=== PATIENT | male | born 1990 | race Two or more races ===

== ENCOUNTER 2018-03-21 21:12 | Emergency (ER) | payer OTHER ==
[2018-03-21] MEDS ORDERED: ceFAZolin 1 GM Vial IM ONE (21:24)
[2018-03-21] MEDS ORDERED: Diphtheria,Pertussis(Acell),Tetanus Vaccine 0.5 ML Syringe IM ONE (21:25)
[2018-03-21 21:32] VITALS: BP 119/74
[2018-03-21] MEDS ORDERED: Water For Injection, Sterile 20 ML ONE (21:56)
[2018-03-21] MEDS ORDERED: Bupivacaine 0.5% 10 ML SDV ONE (21:57)
--- NOTE | 2018-03-21 22:36 | EDM.PDOC ---
ED HPI GENERAL MEDICAL PROBLEM - General Chief Complaint: Laceration Stated Complaint: CUT ON RIGHT MIDDLE FINGER Time Seen by Provider: 03/21/18 21:22 - History of Present Illness INITIAL COMMENTS - FREE TEXT/NARRATIVE: HISTORY AND PHYSICAL: History of present illness: Patient is 27-year-old male presents with concern daily Jutte third digit of his right hand this occurred prior to arrival he denies other trauma concern he denies up-to-date tetanus Review of systems: As per history of present illness and below otherwise all systems reviewed and negative. Past medical history: As per history of present illness and as reviewed below otherwise noncontributory. Surgical history: As per history of present illness and as reviewed below otherwise noncontributory. Social history: No reported history of drug or alcohol abuse. Family history: As per history of present illness and as reviewed below otherwise noncontributory. Physical exam: HEENT: Atraumatic, normocephalic, pupils reactive, negative for conjunctival pallor or scleral icterus, mucous membranes moist, throat clear, neck supple, nontender, trachea midline. Lungs: Clear to auscultation, breath sounds equal bilaterally, chest nontender. Heart: S1S2, regular, negative for clicks, rubs, or JVD. Abdomen: Soft, nondistended, nontender. Negative for masses or hepatosplenomegaly. Negative for costovertebral tenderness. Pelvis: Stable nontender. Genitourinary: Deferred. Rectal: Deferred. Extremities: Patient has a laceration to the dorsal aspect distally through the nail and nailbed of the right hand. CMS neurovascular is unremarkable Neuro: Awake, alert, oriented. Cranial nerves II through XII unremarkable. Cerebellum unremarkable. Motor and sensory unremarkable throughout. Exam nonfocal. Diagnostics: X-ray right hand Therapeutics: Patient was anesthetized with Marcaine 0.5% without epinephrine. His most 0.9 normal saline prepped draped sterile manner closed with 5-0 nylon interrupted suture aluminum/foam volar splint was applied Impression: #1 tuft fracture third digit #2 laceration third digit Definitive disposition and diagnosis as appropriate pending reevaluation and review of above. right middle finger Pain Score (Numeric/FACES): 5 - Related Data Allergies Allergy/AdvReac Type Severity Reaction Status Date / Time No Known Allergies Allergy Verified 03/21/18 21:30 Home Meds: Home Meds . [No Known Home Meds] 03/29/16 [History] Past Medical History - Past Health History Medical/Surgical History: Denies Medical/Surgical History HEENT History: Reports: None Cardiovascular History: Reports: None Respiratory History: Reports: None Gastrointestinal History: Reports: None Genitourinary History: Reports: None Musculoskeletal History: Reports: Fracture Other Musculoskeletal History: rt ankle fx, clavicle fx Neurological History: Reports: None Psychiatric History: Reports: None Endocrine/Metabolic History: Reports: None Hematologic History: Reports: None Immunologic History: Reports: None Oncologic (Cancer) History: Reports: None Dermatologic History: Reports: None - Infectious Disease History Infectious Disease History: Reports: None - Past Surgical History Head Surgeries/Procedures: Reports: None Musculoskeletal Surgical History: Reports: None Social & Family History - Family History Family Medical History: Noncontributory - Caffeine Use Caffeine Use: Reports: None ED ROS GENERAL - Review of Systems Review Of Systems: ROS reveals no pertinent complaints other than HPI. ED EXAM, SKIN/RASH Exam: See Below (See dictation) Course - Vital Signs Last Recorded V/S: Last Vital Signs Temp 36.4 C 03/21/18 21:30 Pulse 102 H 03/21/18 21:30 Resp 18 03/21/18 21:30 BP 119/74 03/21/18 21:30 Pulse Ox 98 03/21/18 21:30 - Orders/Labs/Meds Orders: Active Orders 24 hr Category Date Time Status Vaccines to be Administered [RC] PER UNIT ROUTINE Care 03/21/18 21:25 Active Hand 2V Rt [CR] Stat Exams 03/21/18 21:24 Taken Meds: Medications Discontinued Medications Generic Name Dose Route Start Last Admin Trade Name Annie PRN Reason Stop Dose Admin Bupivacaine HCl Confirm 03/21/18 21:57 Sensorcaine-Mpf 0.5% Administered 03/21/18 21:58 Dose 10 ml .ROUTE .STK-MED ONE Cefazolin Sodium 1 gm 03/21/18 21:24 03/21/18 22:29 Ancef IM 03/21/18 21:25 1 gm ONETIME ONE Administration Diphtheria/Tetanus/Acell Pertussis 0.5 ml 03/21/18 21:25 03/21/18 22:29 Adacel IM 03/21/18 21:26 0.5 ml .ONCE ONE Administration Sterile Water Confirm 03/21/18 21:56 Sterile Water For Injection Administered 03/21/18 21:57 Dose 20 mls @ as directed .ROUTE .STK-MED ONE Departure - Departure Time of Disposition: 22:35 Disposition: Home, Self-Care 01 Condition: Good Clinical Impression: Open fracture of tuft of distal phalanx of finger - Discharge Information Referrals: PCP,None [Primary Care Provider] - Additional Instructions: The following information is given to patients seen in the emergency department who are being discharged to home. This information is to outline your options for follow-up care. We provide all patients seen in our emergency department with a follow-up referral. The need for follow-up, as well as the timing and circumstances, are variable depending upon the specifics of your emergency department visit. If you don't have a primary care physician on staff, we will provide you with a referral. We always advise you to contact your personal physician following an emergency department visit to inform them of the circumstance of the visit and for follow-up with them and/or the need for any referrals to a consulting specialist. The emergency department will also refer you to a specialist when appropriate. This referral assures that you have the opportunity for followup care with a specialist. All of these measure are taken in an effort to provide you with optimal care, which includes your followup. Under all circumstances we always encourage you to contact your private physician who remains a resource for coordinating your care. When calling for followup care, please make the office aware that this follow-up is from your recent emergency room visit. If for any reason you are refused follow-up, please contact the [facility] emergency department at and asked to speak to the emergency department charge nurse. [facility] specialty clinic-Plastics [address] [place] [address] [id number] Follow-up hand surgery above call to schedule appointment splint as directed Keflex as prescribed splint as directed and return as needed as discussed - My Orders Last 24 Hours: My Active Orders 03/21/18 21:24 Hand 2V Rt [CR] Stat 03/21/18 21:25 Vaccines to be Administered [RC] PER UNIT ROUTINE - Assessment/Plan Last 24 Hours: My Active Orders 03/21/18 21:24 Hand 2V Rt [CR] Stat 03/21/18 21:25 Vaccines to be Administered [RC] PER UNIT ROUTINE
--- NOTE | 2018-03-22 08:33 | CR ---
EXAM DATE: 03/21/18 PATIENT'S AGE: 27 Patient: JOSAFAT PORTILLO Facility: [place], [place] Site . Site : 1990 Study: XRay Extremity Right HAND [id number]/13/2018 9:56:03 PM Ordering Physician: Mabel Lara Final Report: Indication: Injury and pain Technique: Right hand 2 views Comparison: None Findings/Impression: Bones and soft tissues: Acute nondisplaced fractures present in the distal tuft of the right 3rd finger with adjacent soft tissue injury. No other osseous or soft tissue abnormality. Joint spaces: Unremarkable. Dictated by Rob Peter MD @ Mar 21 2018 10:13PM (Electronic Signature) Report Signed by Proxy. ELLIE
== END 2018-03-21 23:01 | disposition home or self-care (01) ==
LOC: MW.ED 21:12
DX: S62.662B Nondisplaced fracture of distal phalanx of right middle finger, initial encounter for open fracture (principal); X58.XXXA Exposure to other specified factors, initial encounter; Z23 Encounter for immunization
CPT/HCPCS: 73120; 90471; 90715; 96372; 99283; J0690

== ENCOUNTER 2018-04-13 08:41 | Emergency (ER) | payer OTHER ==
[2018-04-13] MEDS ORDERED: HYDROmorphone 2 MG/ML SDV IVPUSH ONE (08:46)
--- NOTE | 2018-04-13 08:47 | EDM.PDOC ---
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 Past medical history: As per history of present illness and as reviewed below otherwise noncontributory. Surgical history: As per history of present illness and as reviewed below otherwise noncontributory. Social history: No reported history of drug or alcohol abuse. Family history: As per history of present illness and as reviewed below otherwise noncontributory. Physical exam: HEENT: Atraumatic, normocephalic, pupils reactive, negative for conjunctival pallor or scleral icterus, mucous membranes moist, throat clear, neck supple, nontender, trachea midline. Lungs: Clear to auscultation, breath sounds equal bilaterally, chest nontender. Heart: S1S2, regular, negative for clicks, rubs, or JVD. Abdomen: Soft, nondistended, nontender. Negative for masses or hepatosplenomegaly. Negative for costovertebral tenderness. Pelvis: Stable nontender. Genitourinary: Deferred. Rectal: Deferred. Extremities: Atraumatic, negative for cords or calf pain. Neurovascular unremarkable. Neuro: Awake, alert, oriented. Cranial nerves II through XII unremarkable. Cerebellum unremarkable. Motor and sensory unremarkable throughout. Exam nonfocal. Diagnostics: [2 views left foot ] Therapeutics: [Tetanus status is up-to-date Dilaudid 2 mg IV 1 g Rocephin IV Normal saline 1 25 mL per hour ] Splint provided Patient is transferred via ambulance to [facility] Edward, [facility] accepting Impression: [ open, comminuted, fractured distal metatarsal first ] Definitive disposition and diagnosis as appropriate pending reevaluation and review of above. Left Feet Pain Score (Numeric/FACES): 10 - Related Data Allergies Allergy/AdvReac Type Severity Reaction Status Date / Time No Known Allergies Allergy Verified 04/13/18 08:56 Home Meds: Home Meds . [No Known Home Meds] 03/29/16 [History] Past Medical History - Past Health History Medical/Surgical History: Denies Medical/Surgical History HEENT History: Reports: None Cardiovascular History: Reports: None Respiratory History: Reports: None Gastrointestinal History: Reports: None Genitourinary History: Reports: None Musculoskeletal History: Reports: Fracture Other Musculoskeletal History: rt ankle fx, clavicle fx Neurological History: Reports: None Psychiatric History: Reports: None Endocrine/Metabolic History: Reports: None Hematologic History: Reports: None Immunologic History: Reports: None Oncologic (Cancer) History: Reports: None Dermatologic History: Reports: None - Infectious Disease History Infectious Disease History: Reports: None - Past Surgical History Head Surgeries/Procedures: Reports: None Musculoskeletal Surgical History: Reports: None Social & Family History - Family History Family Medical History: Noncontributory - Caffeine Use Caffeine Use: Reports: None ED ROS GENERAL - Review of Systems Review Of Systems: See Below ED EXAM, GENERAL - Physical Exam Exam: See Below Course - Vital Signs Last Recorded V/S: Last Vital Signs Temp 96.3 F 04/13/18 08:42 Pulse 66 04/13/18 08:42 Resp 16 04/13/18 08:42 BP 128/65 04/13/18 08:42 Pulse Ox 98 04/13/18 08:42 - Orders/Labs/Meds Orders: Active Orders 24 hr Category Date Time Status Foot 2V Lt [CR] Stat Exams 04/13/18 08:46 Taken Sodium Chloride 0.9% [Normal Saline] 1,000 ml Med 04/13/18 09:00 Active IV STAT Medication Orders Sodium Chloride (Normal Saline) 1,000 mls @ 125 mls/hr IV STAT SARAH Last Admin: 04/13/18 09:06 Dose: 125 mls/hr Meds: Medications Generic Name Dose Route Start Last Admin Trade Name Freq PRN Reason Stop Dose Admin Sodium Chloride 1,000 mls @ 125 mls/hr 04/13/18 09:00 04/13/18 09:06 Normal Saline IV 125 mls/hr STAT SARAH Administration Discontinued Medications Generic Name Dose Route Start Last Admin Trade Name Annie PRN Reason Stop Dose Admin Hydromorphone HCl 2 mg 04/13/18 08:46 04/13/18 09:06 Dilaudid IVPUSH 04/13/18 08:47 2 mg ONETIME ONE Administration Hydromorphone HCl Confirm 04/13/18 08:50 04/13/18 09:06 Dilaudid Administered 04/13/18 08:51 Not Given Dose 2 mg .ROUTE .STK-MED ONE Ceftriaxone Sodium/Dextrose 1 50 mls @ 100 mls/hr 04/13/18 08:53 04/13/18 09: 05 gm/ Premix IV 04/13/18 09:22 100 mls/hr ONETIME ONE Administration Departure - Departure Time of Disposition: 09:30 Disposition: DC/Tfer to Other 70 Condition: Poor Clinical Impression: Fracture, metatarsal, open - Discharge Information Referrals: PCP,None [Primary Care Provider] - - My Orders Last 24 Hours: My Active Orders 04/13/18 08:46 Foot 2V Lt [CR] Stat 04/13/18 09:00 Sodium Chloride 0.9% [Normal Saline] 1,000 ml IV STAT - Assessment/Plan Last 24 Hours: My Active Orders 04/13/18 08:46 Foot 2V Lt [CR] Stat 04/13/18 09:00 Sodium Chloride 0.9% [Normal Saline] 1,000 ml IV STAT
[2018-04-13] MEDS ORDERED: HYDROmorphone 1 MG/ML Syringe ONE ×2 (08:50→10:10)
[2018-04-13] MEDS ORDERED: cefTRIAXone 1 GM in Premix Bag 1 BAG IV ONE (08:53)
[2018-04-13] MEDS ORDERED: Sodium Chloride 0.9% 1,000 ML IV SCH (09:00)
[2018-04-13 09:47] VITALS: BP 143/94
[2018-04-13] MEDS ORDERED: HYDROmorphone 2 MG/ML Syringe IVPUSH ONE (09:54)
--- NOTE | 2018-04-13 16:40 | CR ---
EXAM DATE: 04/13/18 PATIENT'S AGE: 27 Patient: JOSAFAT PORTILLO Facility: [place], [place] Site . Site : 1990 Study: XRay Extremity Left foot [id number]/6/2018 9:15:27 AM Ordering Physician: Doctor Osorio Final Report: Indication: Injury and pain Technique: Left foot 2 views Comparison: None Findings/Impression: Bones: Acute comminuted, displaced fracture is present in the distal 1st metatarsal. Nondisplaced longitudinal fracture is in the proximal phalanx of the 1st toe. No dislocation. No other osseous abnormality. Joint spaces: Unremarkable. Soft tissues: Soft tissue swelling is adjacent to the fractures. Dictated by Rob Peter MD @ Apr 13 2018 9:29AM (Electronic Signature) Report Signed by Proxy. ELLIE
== END 2018-04-13 10:30 | disposition other institution (70) ==
LOC: MW.ED 08:41
DX: S92.315B Nondisplaced fracture of first metatarsal bone, left foot, initial encounter for open fracture (principal); W23.0XXA Caught, crushed, jammed, or pinched between moving objects, initial encounter; Y92.69 Other specified industrial and construction area as the place of occurrence of the external cause
CPT/HCPCS: 73620; 96361; 96365; 96375; 96376; 99284; J0696; J1170; J7040

== ENCOUNTER 2019-04-04 14:22 | Emergency (ER) | payer SELFPAY ==
[2019-04-04 15:38] LABS: CHLORIDE,CL 96 mmol/L (98-107); SODIUM,NA 132 mmol/L (136-148)
--- NOTE | 2019-04-04 16:00 | CR ---
Indication: Numbness Technique: Left tibia and fibula 2 views Comparison: None Findings: Bones: Alignment is normal. No fractures or bone lesions. Joint spaces: Unremarkable. Soft tissues: Unremarkable. Impression: Normal exam. Dictated by Rob Peter MD @ Apr 04 2019 3:57PM Signed by Dr. Rob Peter @ Apr 04 2019 3:58PM
--- NOTE | 2019-04-04 16:19 | EDM.PDOC ---
ED HPI GENERAL MEDICAL PROBLEM - General Chief Complaint: Lower Extremity Injury/Pain Stated Complaint: RIGHT FOOT PAIN Time Seen by Provider: 04/04/19 14:35 Source of Information: Reports: Patient History Limitations: Reports: No Limitations - History of Present Illness INITIAL COMMENTS - FREE TEXT/NARRATIVE: HISTORY AND PHYSICAL: History of present illness: patient is a 28-year-old male presents to the ED today with concern of left foot sensation decrease over the last 2 days. Patient states he is able to feel the foot but it feels as if the sensation as changed or decreased. Patient denies any trauma or injury to the foot. But he states that it extends from the top of the foot into the mid calf. Patient denies any obvious deformity, swelling, or pain of the foot. Patient denies any health history. Patient denies any other symptoms or concerns at this time. Patient denies any other associated symptoms. He states he did have a surgery on the left foot/big toe several years ago. Patient denies fever, chills, chest pain, shortness of breath, or cough. Denies headache, neck stiff ness, change in vision, syncope, or near syncope. Denies nausea, vomiting, abdominal pain, diarrhea, constipation, or dysuria. Has not noted any blood in urine or stool. Patient has been eating and drinking appropriately. Review of systems: As per history of present illness and below otherwise all systems reviewed and negative. Past medical history: As per history of present illness and as reviewed below otherwise noncontributory. Surgical history: As per history of present illness and as reviewed below otherwise noncontributory. Social history: See social history for further information Family history: As per history of present illness and as reviewed below otherwise noncontributory. Physical exam: General: Patient is alert, oriented, and in no acute distress. Patient sitting comfortably on exam table. HEENT: Atraumatic, normocephalic, pupils equal and reactive bilaterally, negative for conjunctival pallor or scleral icterus, mucous membranes moist, TMs normal bilaterally, throat clear, neck supple, nontender, trachea midline. No drooling or trismus noted. No meningeal signs. No hot potato voice noted. Lungs: Clear to auscultation, breath sounds equal bilaterally, chest nontender. Heart: S1S2, regular rate and rhythm without overt murmur Abdomen: Soft, nondistended, nontender. Negative for masses or hepatosplenomegaly. Negative for costovertebral tenderness. Pelvis: Stable nontender. Genitourinary: Deferred. Rectal: Deferred. Skin: Intact, warm, dry. No lesions or rashes noted. Extremities: Atraumatic, negative for cords or calf pain. Neurovascular unremarkable.dorsalis pedis posterior tibial pulses are both grossly intact and found with Doppler. Patient has full range of motion of bilateral lower extremities without deficit. Negative pain to palpation of the complete left lower extremity. Patient sensation intact to both light touch and sharp vs dull touch. No obvious deformity of the left lower extremity. No swelling or edema of the calf. Neuro: Awake, alert, oriented. Cranial nerves II through XII unremarkable. Cerebellum unremarkable. Motor and sensory unremarkable throughout. Exam nonfocal. Notes: Discussed the importance for follow-up with a primary care provider along for repeat lab work. Voices understanding and is agreeable to plan of care. Denies any further questions or concerns at this time. Diagnostics: CBC, CMP, foot XR, tib/fib XR Therapeutics: None Prescription: None Impression: Stated change in sensation of left lower extremity Transaminitis Plan: 1. You can alternate ibuprofen and Tylenol as directed for pain and discomfort. 2. Follow-up with her primary care provider as discussed. Return to the ED as needed and as discussed. Definitive disposition and diagnosis as appropriate pending reevaluation and review of above. - Related Data Allergies Allergy/AdvReac Type Severity Reaction Status Date / Time No Known Allergies Allergy Verified 04/04/19 14:29 Home Meds: Home Meds . [No Known Home Meds] 03/29/16 [History] Past Medical History - Past Health History Medical/Surgical History: Denies Medical/Surgical History HEENT History: Reports: None Cardiovascular History: Reports: None Respiratory History: Reports: None Gastrointestinal History: Reports: None Genitourinary History: Reports: None Musculoskeletal History: Reports: Fracture Other Musculoskeletal History: rt ankle fx, clavicle fx Neurological History: Reports: None Psychiatric History: Reports: None Endocrine/Metabolic History: Reports: None Hematologic History: Reports: None Immunologic History: Reports: None Oncologic (Cancer) History: Reports: None Dermatologic History: Reports: None - Infectious Disease History Infectious Disease History: Reports: None - Past Surgical History Head Surgeries/Procedures: Reports: None Musculoskeletal Surgical History: Reports: Other (See Below) Other Musculoskeletal Surgeries/Procedures:: left foot surgery Social & Family History - Family History Family Medical History: Noncontributory - Tobacco Use Smoking Status *Q: Current Every Day Smoker Years of Tobacco use: 4 Packs/Tins Daily: 1 - Caffeine Use Caffeine Use: Reports: Energy Drinks - Recreational Drug Use Recreational Drug Use: No Review of Systems - Review of Systems Review Of Systems: ROS reveals no pertinent complaints other than HPI. ED EXAM, GENERAL - Physical Exam Exam: See Below (see dictation) Course - Vital Signs Last Recorded V/S: Last Vital Signs Temp 36.4 C 04/04/19 14:29 Pulse 111 H 04/04/19 14:29 Resp 16 04/04/19 14:29 BP 142/73 H 04/04/19 14:29 Pulse Ox 96 04/04/19 14:29 - Orders/Labs/Meds Orders: Active Orders 24 hr Category Date Time Status Foot 2V Lt [CR] Stat Exams 04/04/19 15:02 Taken Labs: Laboratory Tests 04/04/19 04/04/19 Range/Units 15:09 15:09 WBC 12.96 H (4.0-11.0) K/uL RBC 5.30 (4.50-5.90) M/uL Hgb 16.3 (13.0-17.0) g/dL Hct 45.7 (38.0-50.0) % MCV 86.2 (80.0-98.0) fL MCH 30.8 (27.0-32.0) pg MCHC 35.7 (31.0-37.0) g/dL RDW Std Deviation 38.1 (28.0-62.0) fl RDW Coeff of Kit 12 (11.0-15.0) % Plt Count 327 (150-400) K/uL MPV 9.30 (7.40-12.00) fL Neut % (Auto) 73.9 (48.0-80.0) % Lymph % (Auto) 18.2 (16.0-40.0) % [place] % (Auto) 6.3 (0.0-15.0) % Eos % (Auto) 1.4 (0.0-7.0) % Baso % (Auto) 0.2 (0.0-1.5) % Neut # (Auto) 9.6 H (1.4-5.7) K/uL Lymph # (Auto) 2.4 (0.6-2.4) K/uL [place] # (Auto) 0.8 (0.0-0.8) K/uL Eos # (Auto) 0.2 (0.0-0.7) K/uL Baso # (Auto) 0.0 (0.0-0.1) K/uL Nucleated RBC % 0.0 /100WBC Nucleated RBCs # 0 K/uL Sodium 132 L (136-148) mmol/L Potassium 3.8 (3.5-5.1) mmol/L Chloride 96 L (98-107) mmol/L Carbon Dioxide 24.3 (21.0-32.0) mmol/L BUN 23 H (7.0-18.0) mg/dL Creatinine 1.0 (0.8-1.3) mg/dL Est Cr Clr Drug Dosing 118.18 mL/min Estimated GFR (MDRD) > 60.0 ml/min Glucose 104 (74-106) mg/dL Calcium 9.7 (8.5-10.1) mg/dL Total Bilirubin 1.3 H (0.2-1.0) mg/dL AST 148 H (15-37) IU/L ALT 114 H (14-63) IU/L Alkaline Phosphatase 100 (46-116) U/L Total Protein 8.6 H (6.4-8.2) g/dL Albumin 4.8 (3.4-5.0) g/dL Globulin 3.8 (2.6-4.0) g/dL Albumin/Globulin Ratio 1.3 (0.9-1.6) Departure - Departure Time of Disposition: 16:18 Disposition: Home, Self-Care 01 Clinical Impression: Abnormal sensation of lower extremity, Transaminitis - Discharge Information Referrals: PCP,None [Primary Care Provider] - Additional Instructions: The following information is given to patients seen in the emergency department who are being discharged to home. This information is to outline your options for follow-up care. We provide all patients seen in our emergency department with a follow-up referral. The need for follow-up, as well as the timing and circumstances, are variable depending upon the specifics of your emergency department visit. If you don't have a primary care physician on staff, we will provide you with a referral. We always advise you to contact your personal physician following an emergency department visit to inform them of the circumstance of the visit and for follow-up with them and/or the need for any referrals to a consulting specialist. The emergency department will also refer you to a specialist when appropriate. This referral assures that you have the opportunity for follow-up care with a specialist. All of these measure are taken in an effort to provide you with optimal care, which includes your follow-up. Under all circumstances we always encourage you to contact your private physician who remains a resource for coordinating your care. When calling for follow-up care, please make the office aware that this follow-up is from your recent emergency room visit. If for any reason you are refused follow-up, please contact the [facility] Emergency Department at and asked to speak to the emergency department charge nurse. [facility] [address] [place] [id number] [facility] [address] [place] [phone] 1. You can alternate ibuprofen and Tylenol as directed for pain and discomfort. 2. Follow-up with her primary care provider as discussed. Return to the ED as needed and as discussed. - My Orders Last 24 Hours: My Active Orders 04/04/19 15:02 Foot 2V Lt [CR] Stat - Assessment/Plan Last 24 Hours: My Active Orders 04/04/19 15:02 Foot 2V Lt [CR] Stat
--- NOTE | 2019-04-04 16:24 | CR ---
Indication: Numbness Technique: Left foot 2 views Comparison: None Findings: Bones: There are 3 screws fixating the distal head of the 1st metatarsal. Gross irregularities are present in the articulating surfaces at the 1st metatarsophalangeal joint. No other osseous abnormality. Joint spaces: Joint spaces are unremarkable outside of the 1st metatarsophalangeal joint. Soft tissues: Soft tissue swelling is adjacent to the 1st metatarsophalangeal joint. Impression : There are irregularities in the articulating surfaces of the 1st MTP joint with adjacent soft tissue swelling. These findings could be postprocedural, infectious or inflammatory. Remainder of the left foot is normal. Dictated by Rob Peter MD @ Apr 04 2019 4:19PM Signed by Dr. Rob Peter @ Apr 04 2019 4:23PM
[2019-04-04 16:42] VITALS: BP 122/68
== END 2019-04-04 16:42 | disposition home or self-care (01) ==
LOC: MW.ED 14:22
DX: R20.2 Paresthesia of skin (principal); R74.0 Nonspecific elevation of levels of transaminase and lactic acid dehydrogenase [LDH]; F17.210 Nicotine dependence, cigarettes, uncomplicated
CPT/HCPCS: 36415; 73590-26-LT; 73590-LT; 73620-26-LT; 73620-LT; 80053; 85025; 99283; 99283-25

== ENCOUNTER 2022-09-09 22:37 | Emergency (ER) | payer SELFPAY ==
[2022-09-09] MEDS ORDERED: Sodium Chloride 0.9% 1,000 ML IV ONE ×3 (22:39→23:34)
[2022-09-09] MEDS ORDERED: Acetaminophen 650 MG Supp RECTAL ONE (22:47)
[2022-09-09] MEDS ORDERED: Acetaminophen 325 MG Supp ONE (22:57)
[2022-09-09] MEDS ORDERED: Midazolam 5 MG/ML SDV ONE (23:04)
[2022-09-09] MEDS ORDERED: Midazolam 5 MG/ML SDV IVPUSH STA (23:07)
[2022-09-09 23:28] LABS: ACETAMINOPHEN <2.0 ug/mL; BLOOD UREA NITROGEN,BUN 23 mg/dL (7.0-18.0); CARBON DIOXIDE,CO2 16.7 mmol/L (21.0-32.0); CHLORIDE,CL 101 mmol/L (98-107); GLUCOSE RANDOM 119 mg/dL (74-106); LIPASE 108 U/L (73-393); POTASSIUM,K 4.3 mmol/L (3.5-5.1); SODIUM,NA 142 mmol/L (136-148)
[2022-09-09 23:29] LABS: ESTIMATED GFR 51 mL/min (>60)
[2022-09-10] MEDS ORDERED: Etomidate 2 MG/ML 20 ML SDV IVPUSH STA (00:20)
[2022-09-10] MEDS ORDERED: Rocuronium 100 MG/10 ML MDV IV STA ×3 (00:21→02:28)
[2022-09-10] MEDS ORDERED: fentaNYL/Normal Saline 2,500 MCG in Premix Bag 1 BAG IV PRN (00:31)
[2022-09-10] MEDS ORDERED: fentaNYL 100 MCG/2 ML SDV ONE (00:49)
[2022-09-10] MEDS ORDERED: Propofol 200 MG/20 ML SDV IVPUSH STA ×2 (00:57→02:28)
[2022-09-10] MEDS ORDERED: fentaNYL 100 MCG/2 ML SDV IVPUSH STA (00:58)
[2022-09-10] MEDS ORDERED: Sodium Chloride 0.9% 1,000 ML IV STA (01:45)
[2022-09-10] MEDS ORDERED: Propofol 200 MG/20 ML SDV ONE (02:31)
[2022-09-10] MEDS: propofoL 100 ML IV SCH ×2 (02:34)
[2022-09-10] MEDS: Propofol 200 MG/20 ML SDV IVPUSH ONE ×2 (02:35→02:38)
[2022-09-10 03:19] VITALS: BP 164/80; PULSE 100
== END 2022-09-10 03:00 ==
LOC: MW.ED 22:37
DX: M62.82 Rhabdomyolysis (principal); F15.10 Other stimulant abuse, uncomplicated; Z20.822 Contact with and (suspected) exposure to COVID-19
CPT/HCPCS: 31500; 36415; 36600; 43752; 51702; 70450; 70486; 71045; 72125; 72170; 80053; 80143; 80179; 80305; 80307; 81001; 82550; 82803; 83605; 83690; 83735; 84443; 84484; 85025; 86140; 87635; 93005; 96361; 96365; 96376; 99285; A9270; J2250; J2704; J3010; J3490; J7030; J7040; J7050; U0002